=== PATIENT | male | born 1965 | race Caucasian/White ===

== ENCOUNTER 2016-10-08 17:38 | Emergency (ER) | payer BC ==
[~2016-10-08] VITALS: Ht 170.2 cm; Wt 86.8 kg
[2016-10-08 17:43] VITALS: TEMP 37.1; Ht 170.2 cm; Wt 86.8 kg
[2016-10-08] MEDS ORDERED: TAMS0.4C38 PO (17:54)
[2016-10-08 19:09] VITALS: BP 130/76; PULSE 81; O2SAT 97
--- NOTE | 2016-10-08 19:12 | DIAGNOSTIC IMAGING REPORT ---
TESTICULAR ULTRASOUND HISTORY: Pain. Edema. Left scrotal swelling COMPARISON: None. FINDINGS: Right testis: Maximum dimension 4.4 cm. Normal vascular flow Left testis: 4.9 cm maximum dimension. Slight hyperemia. Left-sided hydrocele. Moderate edematous left epididymis IMPRESSION: 1. Normal right testicular ultrasound. 2. Mild increase in vascular flow to the left epididymis and left testis suggesting mild epididymitis/orchitis. 3. Moderate left hydrocele Electronically signed by: Mike White M.D. 10/08/2016 7:10 PM Dictated Date/Time: 10/08/2016 7:09 PM
[2016-10-08] MEDS ORDERED: DOXYCYCLINE HYCLATE 100 MG CAP PO STA (19:32)
[2016-10-08] MEDS ORDERED: DOXY100C PO (19:35)
[2016-10-08] MEDS ORDERED: CEFTRIAXONE SOD 350MG/ML 1 GM VIAL IM ONE (19:45)
[2016-10-08] MEDS ORDERED: NORCO 5/325MG HOME PACK PO ONE (19:45)
--- NOTE | 2016-10-08 22:04 | EMERGENCY ROOM VISIT NOTE ---
History First contact with patient: 17:48 Chief Complaint: TESTICULAR PAIN Stated Complaint: LF TESTICLE SWOLLEN W/TENDERNESS Nursing Triage Summary: reports testicular pain that started about 10 days ago with hx of epiditimitis , started on cipro has taken for 7 days now with in creased testicular swelling , denies urinary sx or penile drainage History of Present Illness The patient is a 51 year old male who presents to the Emergency Room with complaints of left testicle pain for the past 10 days. The patient does have a history of epididymitis about 20 years ago, and he states his symptoms felt similar to that old episode. 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 The patient does not have dysuria or hematuria. He does not have new sexual partners or concern for STDs. He does have an appointment in 5 days with urology for this complaint. The patient has not had recent prostate exam or catheter placement. He does not have chronic medical disease and considers himself otherwise usually healthy. He rates his discomfort a 7/10 that worsens with certain positioning. Review of Systems More than 10 systems were reviewed and otherwise negative with the exception of history of present illness. Past Medical/Surgical History Medical Problems: (1) Kidney stones (2) Nephrolithiasis (3) No pertinent past medical history Surgical Problems: (1) H/O lithotripsy Family History Cancer Gallbladder disease Kidney disease Seizures Social History Smoking Status: Never Smoker Alcohol Use: occasionally Drug Use: none Marital Status: single Housing Status: lives alone Occupation Status: employed Current/Historical Medications Scheduled Doxycycline Hyclate (Vibramycin), 100 MG PO BID Tamsulosin Hcl (Flomax), 0.4 MG PO HS Allergies Coded Allergies: No Known Allergies (Unverified , 10/08/16) Physical Exam Vital Signs Date Time Temp Pulse Resp B/P Pulse Ox O2 Delivery O2 Flow Rate FiO2 10/08/16 19:09 81 18 130/76 97 Room Air 10/08/16 17:43 37.1 103 18 144/97 95 Room Air Pain Rating (0-10): 5.0 Physical Exam VITALS: Vitals are noted on the nurse's note and reviewed by myself. Vital signs stable. GENERAL: Well-developed, well-nourished, white male, who is in no acute distress and resting comfortably. Patient is cooperative with the examination. HEAD: Normocephalic atraumatic. HEART: Regular rate and rhythm without murmurs gallops or rubs. LUNGS: Clear to auscultation bilaterally without wheezes, rales or rhonchi. No retractions or accessory muscle use. ABDOMEN: Positive normal bowel sounds x 4. Soft, nontender, without masses or organomegaly. No guarding or rebound tenderness. : Normal-appearing external male genitalia with circumcised phallus. No urethral drainage or discharge. The left scrotal sac is notably edematous compared to the right, approximately 3 times the size of the right side. Normal cremasteric reflex. No obvious abscess. There is mild tenderness over the left posterior scrotal sac. No hernia appreciated. MUSCULOSKELETAL: No muscle atrophy, erythema, or edema noted. Full range of motion without joint tenderness in all extremities. Medical Decision & Procedures ER Provider Diagnostic Interpretation: TESTICULAR ULTRASOUND HISTORY: Pain. Edema. Left scrotal swelling COMPARISON: None. FINDINGS: Right testis: Maximum dimension 4.4 cm. Normal vascular flow Left testis: 4.9 cm maximum dimension. Slight hyperemia. Left-sided hydrocele. Moderate edematous left epididymis IMPRESSION: 1. Normal right testicular ultrasound. 2. Mild increase in vascular flow to the left epididymis and left testis suggesting mild epididymitis/orchitis. 3. Moderate left hydrocele Medications Administered Medications (Trade) Dose Ordered Sig/Ronnie Route Start Time Stop Time Status Last Admin Dose Admin Ceftriaxone Sodium (Rocephin Im) 1,000 mg NOW ONCE IM 10/08/16 19:45 10/08/16 19:46 DC 10/08/16 19:46 1,000 MG Acetaminophen/ Hydrocodone Bitart ([place] 5/325mg Home Pack) 1 homepack UD ONCE PO 10/08/16 19:45 10/08/16 19:46 DC 10/08/16 19:45 1 HOMEPACK Doxycycline Hyclate (Vibramycin Cap) 100 mg NOW STAT PO 10/08/16 19:32 10/08/16 19:34 DC 10/08/16 19:45 100 MG ED Course Physical exam and history were performed. Nursing notes and EMR were reviewed. Patient appears to have pain and swelling of his left testicle over the past 10 days. Ultrasound was performed and does confirm epididymitis with varicocele. This medically seems to correlate with the patient's discomfort. He has been on Cipro the past week, and this clearly does not appear to be treating his symptoms. The patient was given 1 g IM Rocephin here in the department. He will be given a course of doxycycline to take as well. He does have an upcoming appointment with urology this week, and he was asked to keep that appointment. I will give him a home pack of Vicodin and a note for several days off work. The patient was invited back to the ER with a new, worsening, or concerning symptoms. The chart was completed utilizing [employer] Speech Voice Recognition Software. Grammatical errors, random word insertions, pronoun errors, and incomplete sentences are an occasional consequence of this system due to software limitations, ambient noise, and hardware issues. Any formal questions or concerns about the content, text, or information contained within the body of this dictation should be directly addressed to the provider for clarification. . Medical Decision Differential diagnosis: Etiologies such as torsion, mass, infection, hernia, hydrocele, epididymitis, trauma, intra-abdominal process, as well as others were entertained. Impression Primary Impression: Acute epididymitis Additional Impression: Hydrocele Departure Information Dispostion Home / Self-Care Condition GOOD Prescriptions Doxycycline Hyclate (VIBRAMYCIN) 100 Mg Cap 100 MG PO BID for 14 Days, #28 CAP Prov: El Elizabeth PA-C 10/08/16 Forms HOME CARE DOCUMENTATION FORM, Work Instructions, Additional Instructions: Patient was seen and evaluated today in the emergency department fo medical care. May return to work on 10/12/2016. Please excuse. IMPORTANT VISIT INFORMATION Patient Instructions [facility] Additional Instructions You were seen and evaluated today on an emergency basis only. This is not a substitute for, or an effort to provide, complete comprehensive medical care. It is not possible to recognize and treat all injuries or illnesses in a single emergency department visit. For this reason it is recommended that you followup with Urology as scheduled on Sunday for ongoing care and evaluation. For baseline pain relief you may alternate ibuprofen and acetaminophen every 4 hours for pain control. Take 600 mg ibuprofen (Advil) and then 4 hours later take 1000 mg acetaminophen (Tylenol). Do not take more than 3000 mg acetaminophen in a single day. [place] (hydrocodone/acetaminophen) 5/325 mg (homepack) every 6 hours as needed for worsening breakthrough pain. Do not drink or drive on [place]. This medication will likely make you tired. Do not take [place] and Tylenol at the same time as both contain acetaminophen. [place] may cause constipation. You may wish to take an abop-iic-ywcyyew stool softener like Colace if this occurs. Take doxycycline 100 mg twice daily for the next 2 weeks. Take this medication with a meal as it can cause an upset stomach. You are welcome to return to the emergency department anytime with new, worsening, or concerning symptoms. Work Instructions Additional Work Instructions: Patient was seen and evaluated today in the emergency department for medical care. May return to work on 10/12/2016. Please excuse. Problem Qualifiers
== END 2016-10-08 19:59 | disposition home or self-care (01) ==
LOC: C.EDB 17:39 → C.EDD 19:59
DX: N45.1 Epididymitis (principal); N43.3 Hydrocele, unspecified; Z87.442 Personal history of urinary calculi